=== PATIENT | male | born 1940 | race Two or more races ===

== ENCOUNTER → 2017-09-22 | Outpatient (CLI) | payer MEDICARE ==
--- NOTE | 2017-09-22 13:54 | ECHOS ---
STRESS ECHOCARDIOGRAM DATE OF SERVICE: 09/22/2017 INDICATION OF THE STUDY: Chest pain. MEDICATIONS: BASELINE HEART RATE: 99 BASELINE BLOOD PRESSURE: 174/79 MAXIMUM HEART RATE: 155 MAXIMUM BLOOD PRESSURE: 192/71 85% MPHR: 123 100% MPHR: 145 METS: 2.8 MAXIMUM STAGE REACHED: I TOTAL EXERCISE TIME: 1:36 CLINICAL INFORMATION: STRESS DATA: Pretesting physical examination showed heart rate of 99, pressure is 174/79 mmHg. Baseline EKG showed sinus rhythm. The patient exercised on the treadmill according to [facility] protocol for a total of 1 minute and 36 seconds and achieved 2.8 METs. Max heart rate was 155, which is about 106 of maximum predicted heart rate. Maximum blood pressure was 192/71 mmHg. Clinically the patient did not have any symptoms of chest pain or discomfort. The EKG showed about [address]-segment changes, most prominent in the lateral leads. ECHOCARDIOGRAM IMAGES: On echocardiogram images from parasternal long axis view, parasternal short axis view, apical 4 chamber view and apical 2 chamber view were obtained as the baseline images, at the peak of the heart rate, as well as on recovery. The echocardiogram images did not show any evidence of wall motion abnormalities consistent with ischemia. CONCLUSION: 1. Poor exercise capacity. 2. ST changes in response to exercise, likely represent the worsening baseline EKG changes in response to exercise. 3. Normal echocardiogram in response to exercise. MMODL / IJN: [id number] /
--- NOTE | 2017-09-26 09:47 | ECHOF ---
Referral Reason:I77.810 Arotic Root Dilation, I44.0 Abnormal EKG MEASUREMENTS -------- HEIGHT: 185.4 cm WEIGHT: 95.3 kg BP: 174/79 RVIDd: 3.7 cm (< 3.3) IVSd: 1.2 cm (0.6 - 1.1) LVIDd: 4.5 cm (3.9 - 5.3) LVPWd: 1.1 cm (0.6 - 1.1) IVSs: 2.0 cm LVIDs: 2.9 cm LVPWs: 1.5 cm LA Diam: 2.8 cm (2.7 - 3.8) LAESV Index (A-L): 22.21 ml/m Ao Diam: 4.7 cm (2.0 - 3.7) AV Cusp: 2.6 cm (1.5 - 2.6) MV EXCURSION: 25.705 mm (> 18.000) MV EF SLOPE: 183 mm/s (70 - 150) EPSS: 0.3 cm MV E Jomar: 0.67 m/s MV DecT: 215 ms MV A Jomar: 0.91 m/s MV E/A Ratio: 0.74 RAP: 5.00 mmHg RVSP: 23.73 mmHg FINDINGS -------- Sinus rhythm. This was a technically good study. The left ventricular size is normal. There is borderline concentric left ventricular hypertrophy. Overall left ventricular systolic function is normal with, an EF between 55 - 60 %. The right ventricle is mild to moderately enlarged. Normal LA size by volume 22+/-6 ml/m2. The right atrium is normal in size. The aortic valve is trileaflet and appears structurally normal. Trace to mild aortic regurgitation. There is trace mitral regurgitation. Mild tricuspid regurgitation present. Right ventricular systolic pressure is normal at < 35 mmHg. Trace/mild (physiologic) pulmonic regurgitation. The aortic root is dilated measuring 4.7cm. Normal inferior vena cava with normal inspiratory collapse consistent with estimated right atrial pre ssure of 5 mmHg. There is no pericardial effusion. CONCLUSIONS -------- 1. Sinus rhythm. 2. This was a technically good study. 3. The left ventricular size is normal. 4. There is borderline concentric left ventricular hypertrophy. 5. Overall left ventricular systolic function is normal with, an EF between 55 - 60 %. 6. The right ventricle is mild to moderately enlarged. 7. Normal LA size by volume 22+/-6 ml/m2. 8. The right atrium is normal in size. 9. The aortic valve is trileaflet and appears structurally normal. 10. Trace to mild aortic regurgitation. 11. There is trace mitral regurgitation. 12. Mild tricuspid regurgitation present. 13. Right ventricular systolic pressure is normal at < 35 mmHg. 14. Trace/mild (physiologic) pulmonic regurgitation. 15. The aortic root is dilated measuring 4.7cm. 16. Normal inferior vena cava with normal inspiratory collapse consistent with estimated right atrial pressure of 5 mmHg. 17. There is no pericardial effusion. PRODUCT DEVELOPMENT COORDINATOR: Vianca Braun RDCS
== END | disposition home or self-care (01) ==
LOC: RADECHMAIN 07:59
PROVIDERS: ATTEND Family Medicine
DX: I44.0 Atrioventricular block, first degree (principal); I77.810 Thoracic aortic ectasia; I07.1 Rheumatic tricuspid insufficiency
CPT/HCPCS: 93017; 93306; 93350

== ENCOUNTER → 2019-10-21 | Outpatient (CLI) | payer MEDICARE ==
--- NOTE | 2019-10-21 14:06 | CT ---
EXAMINATION TYPE: CT angio chest DATE OF EXAM: 10/21/2019 COMPARISON: NONE HISTORY: Thoracic aortic ectasia CT DLP: 783.9 mGycm. Automated Exposure Control for Dose Reduction was Utilized. CONTRAST: CTA scan of the thorax is performed without and with IV Contrast, patient injected with 80 mL of Isov ue 370, pulmonary embolism protocol. Three-D reconstructed images are created on an independent works tation and reviewed. FINDINGS: LUNGS: Background mild to moderate underlying emphysematous change with peripheral reticulation and f ibrosis bilaterally in the mid to lower lungs with additional areas of linear scarring and atelectasi s most prominent in the right lung base posteriorly. No pleural effusion or pneumothorax. No suspicio us pulmonary nodules or masses identified. MEDIASTINUM: There is satisfactory enhancement of the central pulmonary arteries. Main pulmonary emi ry measures 3.2 cm diameter exophytic/31, CT findings suggesting underlying pulmonary hypertension. A djacent ascending aorta measures up to 4.0 cm in diameter. Normal 3 vessel origin from the arch with mild peripheral plaque. Some tortuous course to the ascending aorta without aneurysm. There are no g reater than 1 cm hilar or mediastinal lymph nodes. No pericardial effusion is seen. Heart size uppe r limits of normal. OTHER: Severe multilevel anterior and lateral spine the spine with disc space heights fairly well chip ntained suggesting underlying DISH. IMPRESSION: 1. There is 4.0 cm ascending aortic aneurysm. 2. Moderate underlying emphysematous and basilar pulmonary peripheral fibrotic changes with evidence of underlying pulmonary artery hypertension. No suspicious acute pulmonary process.
== END | disposition home or self-care (01) ==
LOC: RADCTMAIN 11:35
PROVIDERS: ATTEND Family Medicine
DX: I71.2 Thoracic aortic aneurysm, without rupture (principal); J43.9 Emphysema, unspecified; J84.10 Pulmonary fibrosis, unspecified; I27.21 Secondary pulmonary arterial hypertension; I77.810 Thoracic aortic ectasia
CPT/HCPCS: 82565; 84520; 71275; 36415; Q9967

== ENCOUNTER → 2021-03-26 | Outpatient (CLI) | payer MEDICARE ==
--- NOTE | 2021-03-26 20:43 | CT ---
EXAMINATION TYPE: CT angio chest DATE OF EXAM: 03/26/2021 COMPARISON: 10/21/2019 HISTORY: 81-year-old male Thoracic aortic aneurysm TECHNIQUE: Contiguous axial scanning of the chest performed with IV Contrast, patient injected with 1 00 mL of Isovue 370. Coronal/sagittal MIP reconstructions performed. 3-D reconstructions generated on a dedicated independent workstation. CT DLP: 338.7 mGycm Automated exposure control for dose reduction was used. FINDINGS: Heart upper limits of normal in size without pericardial effusion. Aortic root measured at 5.0 cm, unchanged. Ascending aorta mildly aneurysmal 4.2 cm, unchanged. Mild atherosclerotic arch calcifications with conventional branching anatomy. Upper descending thoracic aorta ectatic at 3.6 cm, unchanged. Tortuous descending thoracic aorta with distal ectasia up to 2.6 cm, unchanged. Large caliber to the main right and left pulmonary arteries measuring 2.9 and 2.8 cm, respectively, s uggesting underlying pulmonary arterial hypertension. Right hilar lymph nodes measuring up to 1.3 cm, unchanged, likely reactive. Similarly, 9 mm right infrahilar lymph node is stable. No progressive thoracic lymphadenopathy Moderate centrilobular emphysema. Scattered interstitial thickening and mild ground glass suggesting fibrosis especially at the lung bases. Some subpleural microcystic changes also present. Given the scattered calcified and noncalcified pleural plaques, asbestos exposure suggested. Stable 3 mm posterior left midlung pulmonary nodule, axial image 36. Stable 2 mm right upper lobe pulmonary nodule, axial image 10. The thickened pleural plaque posterior right midlung measuring up to 7 mm thick is unchanged, axial i mage 21. No consolidation or pleural effusion. Visualized upper abdomen shows a few scattered colonic diverticula. Bones: Extensive dish throughout the thoracic spine. Advanced degenerative disc disease L-1-L2. IMPRESSION: 1. STABLE ANEURYSMAL AORTIC ROOT AND ASCENDING THORACIC AORTA (5.0 CM AND 4.2 CM, RESPECTIVELY). STAB LE ECTATIC UPPER DESCENDING THORACIC AORTA 3.6 CM. 2. COPD WITH MILD TO MODERATE EMPHYSEMA AND PULMONARY ARTERIAL HYPERTENSION. 3. SOME FIBROTIC CHANGES IN THE LOWER LUNGS WITH POSSIBLE EARLY HONEYCOMBING CHANGES. GIVEN EVIDENCE OF PRIOR ASBESTOS EXPOSURE, FINDINGS MAY REPRESENT EARLY ASBESTOSIS. CONSIDER REFERRAL TO PULMONARY MEDICINE.
== END | disposition home or self-care (01) ==
LOC: RADCTMAIN 11:55
PROVIDERS: ATTEND Family Medicine
DX: I71.2 Thoracic aortic aneurysm, without rupture (principal); J44.9 Chronic obstructive pulmonary disease, unspecified; I27.21 Secondary pulmonary arterial hypertension
CPT/HCPCS: 82565; 84520; 71275; 36415; Q9967